=== PATIENT | male | born 1975 | race Two or more races ===

== ENCOUNTER 2025-03-08 11:26 | Emergency (ER) | payer OTHER ==
[~2025-03-08] VITALS: Ht 160 cm; Wt 89.8 kg
[2025-03-08 11:48] VITALS: BP 166/109; TEMP 98.9
[2025-03-08] MEDS ORDERED: TDAP [DIPH/PERTUSSIS/TET] 0.5 ML VIAL IM ONE (12:57)
[2025-03-08] MEDS ORDERED: AMOX/CLAVULANATE 875 MG TABLET ONE (12:57)
[2025-03-08] MEDS: AMOX/CLAVULANATE 875 MG TABLET PO ONE (13:06)
[2025-03-08] MEDS: TDAP [DIPH/PERTUSSIS/TET] 0.5 ML VIAL IM ONE (13:06)
[2025-03-08] MEDS ORDERED: AMOX-430 PO (13:31)
[2025-03-08 13:39] VITALS: O2SAT 99
== END 2025-03-08 13:42 | disposition home or self-care (01) ==
LOC: ER 11:26
DX: S61.250A Open bite of right index finger without damage to nail, initial encounter (principal); I10 Essential (primary) hypertension; W53.21XA Bitten by squirrel, initial encounter; Y93.89 Activity, other specified; Y92.89 Other specified places as the place of occurrence of the external cause; Y99.8 Other external cause status
CPT/HCPCS: 90715

== ENCOUNTER 2025-10-04 13:47 | Emergency (ER) | payer OTHER ==
[~2025-10-04] VITALS: Ht 160 cm; Wt 94.3 kg
[~2025-10-04 13:47] MED LIST: AMOX-430 PO
[2025-10-04 14:24] VITALS: TEMP 97.9
[2025-10-04 14:54] LABS: PLATELET COUNT (AUTO) 160 K/uL (150-450); RED BLOOD CELL COUNT(AUTO) 5.06 MIL/uL (4.5-6.0); RED CELL DISTRIBUTION WIDTH 12.8 % (11.5-15.0); WHITE BLOOD COUNT (AUTO) 7.3 K/uL (4.3-11.0)
[2025-10-04 15:02] LABS: CALCIUM, SERUM 8.2 mg/dL (8.5-10.1); CREATININE 1.0 mg/dL (0.6-1.3); SODIUM SERUM 142 mmol/L (136-145); UREA NITROGEN, BLOOD 21 mg/dL (7-18)
[2025-10-04] MEDS ORDERED: IBUP-1490 PO (16:42)
[2025-10-04 17:03] VITALS: BP 149/97; O2SAT 99
== END 2025-10-04 17:01 | disposition home or self-care (01) ==
LOC: ER 13:47
DX: M54.6 Pain in thoracic spine (principal); R06.02 Shortness of breath; R05.9 Cough, unspecified; R09.81 Nasal congestion; R09.89 Other specified symptoms and signs involving the circulatory and respiratory systems; I10 Essential (primary) hypertension
CPT/HCPCS: 36415; 71045-TC; 80048-TC; 84484-TC; 85025-TC